=== PATIENT | female | born 1970 | race Caucasian/White ===

== ENCOUNTER → 2019-08-10 | Outpatient (CLI) | payer OTHER ==
--- NOTE | 2019-08-10 12:00 | RAD ---
Single frontal view pelvis Indication: PAIN IN LEFT HIP Comparison: None. Impression: No advanced joint space narrowing/osteoarthritis of the hips. No acute fracture. Electronically signed by: Henrik Lyons MD 08/10/2019 11:59 AM [facility]
--- NOTE | 2019-08-10 12:01 | RAD ---
4 radiographs left knee Indication: PAIN IN LEFT KNEE Comparison: None. Impression: Small knee effusion. No acute fracture or malalignment. Mild joint space narrowing medial compartment. No advanced osteoarthritis. Electronically signed by: Henrik Lyons MD 08/10/2019 12:00 PM [facility]
== END ==
LOC: RAD 10:21
PROVIDERS: ATTEND Orthopaedic Surgery
DX: M25.862 Other specified joint disorders, left knee (principal); M25.462 Effusion, left knee; M25.552 Pain in left hip